=== PATIENT | male | born 1960 ===

== ENCOUNTER 2024-01-18 22:00 | Observation (INO) | payer BC ==
[~2024-01-18 22:00] MED LIST: MORPHINE SULFATE 4 MG/ML SYRINGE ONE; NITROGLYCERIN OINT 1 INCH/GM PACKET TOPICAL ONE; NITROGLYCERIN-D5W PMX 250 ML IV ONE; NITROGLYCERIN-D5W PMX 50 MG/250 ML BOTTLE IV ONE; SODIUM CHLORIDE 0.9% 1,000 ML BAG ONE
[2024-01-19] MEDS ORDERED: ISOSORBIDE MONONITRATE ER 30 MG TAB.ER.24H PO ONE (09:56)
== END 2024-01-19 14:52 | disposition home or self-care (01) ==
LOC: 3SCARD 22:00
PROVIDERS: ADMIT Hospitalist; ATTEND Hospitalist
DX: R07.89 Other chest pain (principal); I25.111 Atherosclerotic heart disease of native coronary artery with angina pectoris with documented spasm; I49.3 Ventricular premature depolarization; E78.5 Hyperlipidemia, unspecified; I45.10 Unspecified right bundle-branch block; F10.90 Alcohol use, unspecified, uncomplicated; F41.9 Anxiety disorder, unspecified; E66.9 Obesity, unspecified; Z68.36 Body mass index [BMI] 36.0-36.9, adult; Z79.02 Long term (current) use of antithrombotics/antiplatelets; Z79.899 Other long term (current) drug therapy; Z95.1 Presence of aortocoronary bypass graft; Z95.5 Presence of coronary angioplasty implant and graft; Z87.891 Personal history of nicotine dependence
CPT/HCPCS: 80053; 83735; 83880; 84100; 84484; 85025; 85027; 85610; 85730; 93005; 93306; 96365; 96366; 96374; 96376; 99285